=== PATIENT | male | born 1935 | race Caucasian/White ===

== ENCOUNTER → 2016-12-01 | Outpatient (CLI) | payer MEDICARE, BC ==
[~2016-12-01] MED LIST: ALLOPURINOL300 MG PO; ASPIRIN PO; ASPIRIN81 MG PO; CARVEDILOL6.25 MG PO; DIOVAN PO; LASIX20 MG PO; LISINOPRIL10 MG PO; LOSARTAN-HCTZ1 EAC2 PO; PANTOPRAZOLE SO40 MG PO; PROTONIX PO; TIMOPTIC 0.5% OP5 M2 OU; ZOCOR20 MG PO
--- NOTE | ~2016-12-01 | MR17 ---
[facility] A Service of [facility] & [facility] RADIOLOGY TEXT RESULTS PATIENT: LACEY BREWSTER LOCATION: [facility] : 34 UNIT #: [id number] AGE: [address]: Mahin French II, MD SEX: M ORDER DR: [id number] [facility] [address] [place], [place] [address] [id number] O MR#: [id number] Acc #: [id number] NAME: LACEY BREWSTER : 1935 SEX: M STUDY DATE/TIME: 12/01/2016 16:21 UNIT: [facility] ROOM: STUDY DESCRIPTION: MR Brain WWo Contrast Attending Physician: Mahin French II., M.D. Referring Physician: Mahin French II., M.D. Ordering Physician: Mahin French II., M.D. Primary Care Physician: Werner Blackmon M.D. MRI CENTER REPORT This report is preliminary unless electronic signature is present. EXAM Brain MRI with and without contrast HISTORY Dysphasia for the past 2-3 months with difficulty with word finding. TECHNIQUE Multiplanar imaging brain was performed with and without contrast. 12 mL of MultiHance was used. FINDINGS On diffusion weighted imaging there is no evidence of abnormal or restricted diffusion to suggest a recent infarct. The routine brain images show atrophy. No white matter signal abnormalities are seen. There is no evidence of mass lesion, hemorrhage or edema. After contrast administration no abnormal enhancement is seen. Extraaxial structures are unremarkable. IMPRESSION Atrophy. No acute findings. Dictated by... Eyal Gomez M.D. THIS IS AN ELECTRONICALLY VERIFIED REPORT Eyal Gomez M.D. at 12/01/2016 10:17 PM RLF/to TD: 12/01/2016 19:18 JOB #: [id number] MRI CENTER REPORT Page 1 of 1 COPY
[2016-12-02 06:57] LABS: POC - CREATININE 1.41 mg/dL (0.64-1.27)
== END | disposition home or self-care (01) ==
LOC: CMRI 15:47
PROVIDERS: Psychiatry & Neurology Neurology
DX: R47.01 Aphasia (principal); G31.9 Degenerative disease of nervous system, unspecified
CPT/HCPCS: 70553; 82565; A9577

== ENCOUNTER 2017-01-01 17:56 | Emergency (ER) | payer MEDICARE, BC ==
--- NOTE | ~2017-01-01 | CR72 ---
[facility] A Service of [facility] & [facility] RADIOLOGY TEXT RESULTS PATIENT: LACEY BREWSTER LOCATION: [facility] : 34 UNIT #: [id number] AGE: [address]: Eyal Simon MD SEX: M ORDER DR: [id number] [facility] [address] [place], [place] [address] [id number] E MR#: [id number] Acc #: [id number] NAME: LACEY BREWSTER : 1935 SEX: M STUDY DATE/TIME: 01/01/2017 19:30 UNIT: [facility] ROOM: STUDY DESCRIPTION: CR Chest Single View Portable Attending Physician: Eyal Simon M.D. Ordering Physician: Eyal Simon M.D. Primary Care Physician: Werner Blackmon M.D. MEDICAL IMAGING REPORT This report is preliminary unless electronic signature is present EXAM Portable chest HISTORY Cough for 2 days. FINDINGS Cardiac size and pulmonary vascularity are within normal limits. Relatively shallow inspiration. Sternotomy with mediastinal clips, CABG markers and cardiac valve prosthesis. No airspace infiltrates or effusions. IMPRESSION No acute findings. Dictated by... Will Sim M.D. THIS IS AN ELECTRONICALLY VERIFIED REPORT Will Sim M.D. at 01/01/2017 10:26 PM CALEB/zac TD: 01/01/2017 22:12 JOB #: [id number] MEDICAL IMAGING REPORT Page 1 of 1 COPY
--- NOTE | ~2017-01-01 | EKG ---
PATIENT: LACEY BREWSTER UNIT #: [id number] Ventricular Rate: 57 BPM Atrial Rate: 57 BPM P-R Interval: 172 ms QRS Duration: 132 ms Q-T Interval: 464 ms QTC Calculation(Bezet): 451 ms P Cerrillos: 50 degrees Calculated R Cerrillos: -53 degrees Calculated T Cerrillos: 23 degrees Diagnosis Line: Sinus bradycardia with Premature atrial complexes Diagnosis Line: Left axis deviation Diagnosis Line: Right bundle branch block Diagnosis Line: Minimal voltage criteria for LVH, may be normal Diagnosis Line: variant Diagnosis Line: Abnormal ECG Diagnosis Line: When compared with ECG of 06-FEB-2016 11:24, Diagnosis Line: Premature atrial complexes are now Present Diagnosis Line: Confirmed by ETHAN RODAS MD ([id number]) on Diagnosis Line: 01/04/2017 8:43:35 AM INTERPRETING MD: CLARK DURAN
[2017-01-01 19:40] LABS: URINE SOURCE CLEAN CATCH
[2017-01-01 19:44] LABS: BASOPHIL% 0.6 % (0-2.5); EOSINOPHIL# 0.1 X10e3 (0-0.7); EOSINOPHIL% 1.5 % (0.0-7.0); HEMOGLOBIN 9.2 gm/dL (13.0-16.0); LYMPHOCYTE# 0.6 X10e3 (1.0-3.5); LYMPHOCYTE% 13.7 % (17.0-45.0); MEAN CELL VOLUME 104.2 FL (83-96); MEAN CORPUSCULAR HEMOGLOBIN 34.3 PG (28-34); MEAN CORPUSCULAR HGB CONC 32.9 g/dL (30-36); MONOCYTE# 0.7 X10e3 (0-1.0); MONOCYTE% 14.6 % (3.0-12.0); NEUTROPHIL# 3.3 X10e3 (1.5-7.1); NEUTROPHIL% 69.6 % (40-75); PLATELET COUNT 175 X10e3 (140-420); RED BLOOD COUNT 2.69 X10e (3.90-5.60); WHITE BLOOD COUNT 4.7 X10e3 (4.0-10.5)
[2017-01-01 19:45] LABS: DIFF IND NO
[2017-01-01 19:46] LABS: URINE APPEARANCE CLEAR; URINE BILIRUBIN NEG (NEG); URINE BLOOD NEG (NEG); URINE COLOR YELLOW; URINE GLUCOSE NEG (NEG); URINE KETONE NEG (NEG); URINE LEUKOCYTE ESTERASE 2+ (NEG); URINE NITRATE NEG (NEG); URINE PROTEIN NEG (NEG); URINE UROBILINOGEN 0.2 MG/DL (NEG)
[2017-01-01 19:47] LABS: URBCS1 AUWI 0-2 /[HPF] (0-2); URINE BACTERIA AUWI NEG (NEGATIVE); URINE SQUAMOUS EPITHELIAL CELL OCC /[HPF]
[2017-01-01 19:52] LABS: POC - TROPONIN <0.05 ng/mL (<=0.05)
[2017-01-01 20:07] LABS: ALBUMIN SERUM 3.6 g/dL (3.5-5.0); BILIRUBIN, DIRECT 0.2 mg/dL (0.0-0.2); BILIRUBIN,INDIRECT 0.7 mg/dL (0.0-0.9); BILIRUBIN,TOTAL 0.9 mg/dL (0.2-2.0); CALCIUM SERUM 8.9 mg/dL (8.4-10.2); GLOM FILT RATE Estimated 30.2 mL/min (>60); POTASSIUM 4.4 mmol/L (3.5-5.1); PROTEIN TOTAL SERUM 6.7 g/dL (6.0-8.3)
== END 2017-01-01 22:06 | disposition home or self-care (01) ==
LOC: CED 17:56
PROVIDERS: Emergency Medicine
DX: N39.0 Urinary tract infection, site not specified (principal); R53.1 Weakness; R19.7 Diarrhea, unspecified; Z88.5 Allergy status to narcotic agent; Z79.899 Other long term (current) drug therapy
CPT/HCPCS: 36415; 71010; 80048; 80076; 81003; 82553; 82947; 84484; 85025; 93005; 96360; 99284

== ENCOUNTER → 2017-01-01 | Outpatient (CLI) | payer MEDICARE, BC ==
[2017-01-02 15:57] LABS: FOLATE (FOLIC ACID) >23.6 ng/mL (>5.8)
[2017-01-02 16:03] LABS: IRON SERUM 22 ug/dL (45-182); TOTAL IRON BINDING CAPACITY 227 ug/dL (252-460); TRANSFERRIN 162 mg/dL (180-329); TRANSFERRIN SATURATION 10 % (20-50)
== END | disposition home or self-care (01) ==
LOC: CLAB 15:01 → CCBS 15:01
PROVIDERS: Internal Medicine Medical Oncology
DX: D64.9 Anemia, unspecified (principal)
CPT/HCPCS: 82607; 82668; 82728; 82746; 83540; 83550; 85044

== ENCOUNTER → 2017-02-27 | Outpatient (CLI) | payer MEDICARE, BC ==
--- NOTE | ~2017-02-27 | CR21 ---
[facility] A Service of [facility] RADIOLOGY TEXT RESULTS PATIENT: LACEY BREWSTER LOCATION: [facility] : 34 UNIT #: [id number] AGE: [address]: Marty Morin MD SEX: M ORDER DR: [id number] [facility] [address] [place], [place] [address] [id number] O MR#: [id number] Acc #: [id number] NAME: LACEY BREWSTER. : 1935 SEX: M STUDY DATE/TIME: 02/27/2017 16:16 UNIT: [facility] ROOM: STUDY DESCRIPTION: CR Ankle Min 3 Views Rt Attending Physician: Marty Morin M.D. Referring Physician: Marty Morin M.D. Ordering Physician: Marty Morin M.D. Primary Care Physician: Werner Blackmon M.D. MEDICAL IMAGING REPORT This report is preliminary unless electronic signature is present EXAM Right ankle 02/27/2017 HISTORY 81-year-old male with right ankle pain and swelling for 2 days. COMPARISON None. FINDINGS Three views of the right ankle demonstrate no acute fracture or dislocation. Ankle mortise symmetric. Talar dome intact. Trace tibiotalar effusion. Extensive vascular calcification. Soft tissues are unremarkable. IMPRESSION 1. No acute fracture or dislocation. 2. Trace tibiotalar effusion, nonspecific. 3. Vascular calcification. Dictated by... Chadwick Duarte M.D. THIS IS AN ELECTRONICALLY VERIFIED REPORT Chadwick Duarte M.D. at 02/28/2017 2:18 PM FERN/meghna TD: 02/28/2017 12:50 JOB #: [id number] MEDICAL IMAGING REPORT Page 1 of 1 COPY
== END | disposition home or self-care (01) ==
LOC: CRAD 15:50
DX: M25.471 Effusion, right ankle (principal); I70.0 Atherosclerosis of aorta
CPT/HCPCS: 73610